=== PATIENT | female | born 1945 | race Caucasian/White ===

== ENCOUNTER → 2016-07-07 | Outpatient (CLI) | payer MEDICARE, OTHER ==
[2014-10-13 21:30] VITALS: BP 124/61
[~2016-07-07] MED LIST: ASPI81TA2 PO; ATOR20TA PO; CALC500T27 PO; CITA20TA9 PO; MULT-460 PO; VALS320T2 PO
--- NOTE | 2016-07-07 13:27 | RAD ---
Bone Densitometry History: Postmenopausal screening, white female, calcium use. Findings: Bone Densitometry was performed with dual photon absorption of the lumbar spine and proximal right femur. Lumbar Spine: Bone density is 1.269 g/cm2 for L1-L4. T-score is 0.7. There is levoconvex scoliosis centered at L3-4 level. Right Femur: Bone density is 0.965 g/cm2. T-score is -0.4. Impression: Bone mineral density of the lumbar spine and proximal right femur appears within normal limits. World Health Organization definition of osteoporosis and osteopenia for women: normal equals T score at or above -1.0 standard deviations; osteopenia equals T score between -1.0 and -2.5 standard deviations; osteoporosis equals T score at or below -2.5 standard deviations.
== END | disposition home or self-care (01) ==
LOC: DXRAD 12:42
PROVIDERS: ATTEND Family Medicine
DX: Z12.31 Encounter for screening mammogram for malignant neoplasm of breast (principal); M41.86 Other forms of scoliosis, lumbar region; Z78.0 Asymptomatic menopausal state
CPT/HCPCS: 77063; 77080; G0202; 77067

== ENCOUNTER → 2016-08-02 | Outpatient (CLI) | payer MEDICARE, OTHER ==
[2014-10-13 21:30] VITALS: BP 124/61
[~2016-08-02] MED LIST changes: +ASPI-630 PO; -ASPI81TA2 PO; -CALC500T27 PO; +CALC500T30 PO
--- NOTE | 2016-08-04 10:26 | RAD ---
DATE: 08/02/2016 EXAM: DIGITAL DIAGNOSTIC LT HISTORY: Possible abnormality seen on screening COMPARISON: Screening examination 07/07/2016 This study was interpreted with the benefit of Computerized Aided Detection (CAD ). FINDINGS: Breast Density: Unchanged relative to the screening exam. : Compression imaging in the CC plane was performed as well as rolled cc views of the left breast. On the additional images a definite mass is not seen and the findings on the screening examination are most compatible with summation artifact. Targeted ultrasound to the retroareolar area of the left breast was performed. In the retroareolar area no definite abnormality is seen. Additional imaging was performed targeted to the upper outer aspect of the left breast where a well -defined nodule was seen on mammography. At this location, 2:00, 7 cm from the nipple there is a hypoechoic 7 mm mass most compatible with a cyst. IMPRESSION: Probable benign findings left breast. Follow-up mammography of the left breast is suggested in 6 months to confirm stability BI-RADS CATEGORY: 3 PROBABLE BENIGN FINDING(S-SHORT INTERVAL FOLLOW-UP SUGGESTED RECOMMENDED FOLLOW-UP: 6M 6 MONTH FOLLOW-UP PQRS compliance statement: Patient information was entered into a reminder system with a target due date 02/02/2017 for the next mammogram. Mammography is a sensitive method for finding small breast cancers, but it does not detect them all and is not a substitute for careful clinical examination. A negative mammogram does not negate a clinically suspicious finding and should not result in delay in biopsying a clinically suspicious abnormality. "Our facility is accredited by the [employer] Mammography [employer]." SOL
== END | disposition home or self-care (01) ==
LOC: MAMMO 13:35
PROVIDERS: ATTEND Family Medicine
DX: R92.8 Other abnormal and inconclusive findings on diagnostic imaging of breast (principal)
CPT/HCPCS: 76641; G0206; 77065

== ENCOUNTER → 2017-02-14 | Outpatient (CLI) | payer MEDICARE, OTHER ==
[2014-10-13 21:30] VITALS: BP 124/61
--- NOTE | 2017-02-14 14:59 | RAD ---
DATE: 02/14/2017 EXAM: MAMMO ALISTAIR GISELLAG LT, BREAST LEFT HISTORY: 6 month follow-up COMPARISON: 07/07/2016 This study was interpreted with the benefit of Computerized Aided Detection (CAD). FINDINGS: Breast Density: HETERO The breast parenchyma Is heterogeneouslyy dense, which could reduce sensitivity of mammography. Breast parenchyma level C. Small masslike density identified in the left upper outer quadrant slightly increased since prior exam. Thyroid ultrasound the left breast at 2:00 position 7 cm from the nipple demonstrates a slightly increased 1 cm cystic structure probably a cyst. IMPRESSION: Probable cyst left breast. Recommend left breast ultrasound in 6 months. BI-RADS CATEGORY: 3 PROBABLE BENIGN-SHORT TERM F/U RECOMMENDED FOLLOW-UP: 6M 6 MONTH FOLLOW-UP PQRS compliance statement: Patient information was entered into a reminder system with a target due date 08/13/2017 for the next ultrasound. Mammography is a sensitive method for finding small breast cancers, but it does not detect them all and is not a substitute for careful clinical examination. A negative mammogram does not negate a clinically suspicious finding and should not result in delay in biopsying a clinically suspicious abnormality. "Our facility is accredited by the [employer] Mammography [employer]."
== END | disposition home or self-care (01) ==
LOC: MAMMO 13:13
PROVIDERS: ATTEND Family Medicine
DX: R92.8 Other abnormal and inconclusive findings on diagnostic imaging of breast (principal)
CPT/HCPCS: 76641; G0206; G0279; 77061; 77065

== ENCOUNTER → 2017-08-15 | Outpatient (CLI) | payer MEDICARE, OTHER ==
[2014-10-13 21:30] VITALS: BP 124/61
--- NOTE | 2017-08-15 14:40 | RAD ---
DATE: 08/15/2017 EXAM: MAMMO ALISTAIR OLIVA ESPINOSA, BREAST LEFT HISTORY: Follow-up left breast nodule COMPARISON: 02/14/2017, 08/02/2016 This study was interpreted with the benefit of Computerized Aided Detection (CAD). The breast parenchyma is heterogeneously dense, which could reduce sensitivity of mammography. Breast parenchyma level C. FINDINGS: 2-D and 3-D tomosynthesis imaging was performed in CC and MLO projections. There is a 9-10 mm nodule in the lateral aspect of the left breast which is unchanged since 07/07/2016. No new or enlarging breast densities are seen. No suspicious microcalcifications are evident. Left breast ultrasound, 08/15/2017: A targeted ultrasound exam of left breast was performed at 2:00 location, approximately 7 cm from the nipple where a small lesion was identified on the 02/14/2017 exam. There is an elongated, smooth, anechoic structure at this level measuring 6 x 5 x 9 mm. Allowing for technical differences it is unchanged since the previous study. It is wider than tall. There is mild posterior acoustic enhancement. The features are compatible with a simple cyst. No other abnormality is seen in this region. IMPRESSION: 1. Stable small cyst in the left breast. 2. No mammographic evidence of malignancy in either breast. BI-RADS CATEGORY: 1 NEGATIVE RECOMMENDED FOLLOW-UP: 12M 12 MONTH FOLLOW-UP PQRS compliance statement: Patient information was entered into a reminder system with a target due date for the next mammogram. Mammography is a sensitive method for finding small breast cancers, but it does not detect them all and is not a substitute for careful clinical examination. A negative mammogram does not negate a clinically suspicious finding and should not result in delay in biopsying a clinically suspicious abnormality. "Our facility is accredited by the [employer] Mammography [employer]."
== END | disposition home or self-care (01) ==
LOC: MAMMO 12:53
PROVIDERS: ATTEND Family Medicine
DX: R92.8 Other abnormal and inconclusive findings on diagnostic imaging of breast (principal)
CPT/HCPCS: 76641; 77066; G0279; 77062

== ENCOUNTER → 2018-01-06 | Outpatient (CLI) | payer MEDICARE, OTHER ==
[2014-10-13 21:30] VITALS: BP 124/61
--- NOTE | 2018-01-06 17:59 | RAD ---
Small bowel follow-through study 01/06/2018 CLINICAL HISTORY: Anemia of uncertain etiology. TECHNIQUE: A small bowel follow-through study was performed under radiographic control. No spot radiographs were obtained. FINDINGS: An AP digital radiograph of the abdomen was obtained as a extruder operator radiograph. This demonstrates a moderate sized hiatal hernia. There is mild cardiomegaly. The lung bases are clear. The abdominal bowel gas pattern is nonobstructive. Mild S-shaped curvature of the thoracolumbar spine is seen. Degenerative changes are seen involving the thoracic and lumbar spine. There is a moderate sized sliding hiatal hernia. The mucosal pattern of the duodenum, jejunum, ileum and terminal ileum is within normal limits. The small bowel transit time is within normal limits. No extrinsic mass effect upon the small bowel is seen. IMPRESSION: Moderate sized sliding hiatal hernia. Otherwise negative study. Electronically signed by: Giancarlo Hernandez MD (01/06/2018 5:56 PM) [id number]
== END | disposition home or self-care (01) ==
LOC: RAD 08:22
PROVIDERS: ATTEND Internal Medicine Gastroenterology
DX: K44.9 Diaphragmatic hernia without obstruction or gangrene (principal); I51.7 Cardiomegaly; D64.89 Other specified anemias
CPT/HCPCS: 74250

== ENCOUNTER → 2018-06-29 | Outpatient (CLI) | payer MEDICARE, OTHER ==
[2014-10-13 21:30] VITALS: BP 124/61
--- NOTE | 2018-06-29 15:46 | RAD ---
Bone densitometry 06/29/2018 12:33 PM Indication: post menopausal Comparison Study: Bone densitometry July 07, 2016. Discussion: Bone Densitometry was performed with dual photon absorption of the lumbar spine and right proximal femur.. Scoliotic and associated degenerative changes of the lumbar spine noted. Lumbar Spine: Bone average density is 1.175g/cm2 for L1-L4. T-Score is 0. (Prior T score 0.7) Right proximal femur: Bone average density is 0.907g/cm2. T-Score is -0.4. (Prior T score -0.4) IMPRESSION: Bone mineral density measurements are within normal limits. Note: Definitions established by the World Health Organization: Normal: T-score is -1.0 or above. Osteopenia: T-score is between -1.0 and -2.5. Osteoporosis: T-score is -2.5 or below. Electronically signed by: Hector Love MD (06/29/2018 3:43 PM) [id number]
== END | disposition home or self-care (01) ==
LOC: DXRAD 12:28
PROVIDERS: ATTEND Family Medicine
DX: Z13.820 Encounter for screening for osteoporosis (principal); M41.86 Other forms of scoliosis, lumbar region; M47.816 Spondylosis without myelopathy or radiculopathy, lumbar region; Z78.0 Asymptomatic menopausal state
CPT/HCPCS: 77080

== ENCOUNTER → 2018-10-02 | Outpatient (CLI) | payer MEDICARE, OTHER ==
[2014-10-13 21:30] VITALS: BP 124/61
--- NOTE | 2018-10-05 15:47 | RAD ---
EXAM: MAMMO ALISTAIR SCREENING BILATERAL HISTORY: routine screening evaluation. COMPARISON: Prior mammographic imaging dating back to 05/27/2015 Bilateral CC and MLO views of the breasts were performed. Bilateral breast tomosynthesis was performed in CC and MLO projections. This study was interpreted with the benefit of Computerized Aided Detection (CAD). Breast Density: The breast parenchyma is heterogeneously dense, which could reduce sensitivity of mammography. Breast parenchyma level C. FINDINGS: Benign calcifications are present. The parenchymal pattern appears stable. No suspicious masses, microcalcifications or architectural distortion is present to suggest malignancy in either breast. The visualized axillae are unremarkable. IMPRESSION: No mammographic evidence of malignancy. BI-RADS CATEGORY: 2 BENIGN FINDING(S) RECOMMENDED FOLLOW-UP: 12M 12 MONTH FOLLOW-UP Annual screening mammography is recommended, unless clinically indicated sooner based on symptoms or change in physical exam. PQRS compliance statement: Patient information was entered into a reminder system with a target due date for the next mammogram. Mammography is a sensitive method for finding small breast cancers, but it does not detect them all and is not a substitute for careful clinical examination. A negative mammogram does not negate a clinically suspicious finding and should not result in delay in biopsying a clinically suspicious abnormality. "Our facility is accredited by the [employer] Mammography [employer]." LUAND
== END | disposition home or self-care (01) ==
LOC: MAMMO 10:19
PROVIDERS: ATTEND Family Medicine
DX: Z12.31 Encounter for screening mammogram for malignant neoplasm of breast (principal); N64.89 Other specified disorders of breast
CPT/HCPCS: 77063; 77067

== ENCOUNTER → 2019-10-08 | Outpatient (CLI) | payer MEDICARE, OTHER ==
[2014-10-13 21:30] VITALS: BP 124/61
--- NOTE | 2019-10-08 16:43 | RAD ---
DATE: 10/08/2019 10:45 AM EXAM: MAMMO ALISTAIR SCREENING BILATERAL HISTORY: Screening COMPARISON: 10/02/2018, Bilateral CC and MLO views of the breasts were performed. Bilateral breast tomosynthesis was performed in CC and MLO projections. This study was interpreted with the benefit of Computerized Aided Detection (CAD). FINDINGS: Breast Density: HETERO The breast parenchyma Is heterogeneously dense, which could reduce sensitivity of mammography. Breast parenchyma level C Right breast shows an asymmetry in the medial middle third breast, best seen on the CC series both on the 2-D image and on image 34 of 64 on the CC series. It is not as well seen on the MLO view. This needs additional imaging with a full-field lateral view and spot compression view with probable targeted ultrasound of the right breast at the approximate 3:00 position lateral periareolar breast. No suspicious masses, microcalcifications or architectural distortion is present to suggest malignancy in the left breast. The visualized axillae are unremarkable. IMPRESSION: Right breast asymmetry, findings for which additional imaging is advised. BI-RADS CATEGORY: 0 INCOMPLETE: NEEDS ADDITIONAL IMAGING EVALUATION AND/OR PRIOR MAMMOGRAMS FOR COMPARISON. RECOMMENDED FOLLOW-UP: ADD ADDITIONAL IMAGING The patient will be contacted to return for additional imaging and a supplemental report will follow. PQRS compliance statement: Patient information was entered into a reminder system with a target due date for the next mammogram. Mammography is a sensitive method for finding small breast cancers, but it does not detect them all and is not a substitute for careful clinical examination. A negative mammogram does not negate a clinically suspicious finding and should not result in delay in biopsying a clinically suspicious abnormality. "Our facility is accredited by the [employer] Mammography [employer]."
== END ==
LOC: MAMMO 10:39
PROVIDERS: ATTEND Family Medicine
DX: Z12.31 Encounter for screening mammogram for malignant neoplasm of breast (principal)
CPT/HCPCS: 77063; 77067

== ENCOUNTER → 2019-10-22 | Outpatient (CLI) | payer MEDICARE, OTHER ==
[2014-10-13 21:30] VITALS: BP 124/61
--- NOTE | 2019-10-22 17:38 | RAD ---
DATE: 10/22/2019 3:09 PM EXAM: DIGITAL DIAGNOSTIC RT, BREAST RIGHT HISTORY: Screening recall for asymmetry in the medial right breast. COMPARISON: 05/27/2015, 10/08/2019 Technique: Spot compression cc views of the right breast in addition to full-field ML views of the right breast with 2-D and 3-D technique were obtained and reviewed with computer-aided detection. Targeted ultrasound of the superior right breast including the upper inner quadrant at the approximate 1:00 position was performed. Sonographic survey of the right axilla was also performed. FINDINGS: Breast Density: HETERO The breast parenchyma Is heterogeneously dense, which could reduce sensitivity of mammography. Breast parenchyma level C The questioned asymmetry changed configuration in a pattern compatible with benign overlap of dense fibroglandular tissue. Because the breast was heterogeneously dense, additional imaging by targeted ultrasound was pursued revealing no suspicious sonographic findings. IMPRESSION: No evidence of malignancy. BI-RADS CATEGORY: 1 NEGATIVE RECOMMENDED FOLLOW-UP: 12M 12 MONTH FOLLOW-UP Annual screening mammography is recommended, unless clinically indicated sooner based on symptoms or change in physical exam. PQRS compliance statement: Patient information was entered into a reminder system with a target due date for the next mammogram. Mammography is a sensitive method for finding small breast cancers, but it does not detect them all and is not a substitute for careful clinical examination. A negative mammogram does not negate a clinically suspicious finding and should not result in delay in biopsying a clinically suspicious abnormality. "Our facility is accredited by the [employer] Mammography [employer]."
== END | disposition home or self-care (01) ==
LOC: MAMMO 14:50
PROVIDERS: ATTEND Family Medicine
DX: R92.2 Inconclusive mammogram (principal)
CPT/HCPCS: 76641; 77065

== ENCOUNTER → 2020-10-27 | Outpatient (CLI) | payer MEDICARE, OTHER ==
[2014-10-13 21:30] VITALS: BP 124/61
--- NOTE | 2020-10-27 15:23 | RAD ---
INDICATION: 75 years of age asymptomatic female patient presents for screening mammography. TECHNIQUE: Full field craniocaudal and mediolateral oblique images of both breasts were obtained usi ng digital technique with tomosynthesis and also analyzed with computer-aided detection software. COMPARISON: Prior mammographic imaging 10/08/2019 10/02/2018. BREAST COMPOSITION: Category B: There are scattered fibroglandular densities. FINDINGS: Benign calcifications are present. The parenchymal pattern appears stable. No suspicious masses, microcalcifications or architectural distortion is present to suggest malignanc y in either breast. The visualized axillae are unremarkable. IMPRESSION: No mammographic evidence of malignancy. RECOMMENDATION: Annual screening mammography is recommended, unless clinically indicated sooner based on symptoms or change in physical exam. BIRADS 2: BENIGN This study was interpreted with the benefit of Computerized Aided Detection (CAD). Patient information is entered into the reminder system with a target due date for the next screening mammogram. Mammography is the most sensitive method for finding small breast cancers, but it does not detect the m all and is not a substitute for careful clinical examination. A negative mammogram does not negate a clinically suspicious finding and should not result in delay in biopsying a clinically suspicious a bnormality. "Our facility is accredited by the [employer] Mammography Program." Electronically signed by: Everardo Segura MD (10/27/2020 3:21 PM) [facility]
== END ==
LOC: MAMMO 09:14
PROVIDERS: ATTEND Family Medicine
DX: Z12.31 Encounter for screening mammogram for malignant neoplasm of breast (principal)
CPT/HCPCS: 77063; 77067

== ENCOUNTER → 2020-11-18 | Outpatient (CLI) | payer MEDICARE, OTHER ==
[2014-10-13 21:30] VITALS: BP 124/61
--- NOTE | 2020-11-18 10:38 | RAD ---
INDICATION: Screening for osteopenia/osteoporosis. Postmenopausal screening COMPARISON: 06/29/2018 TECHNIQUE: Bone densitometry was performed through the lumbar spine and proximal femur. IMPRESSION: Lumbar Spine: BMD: 1.16 T-Score: -0.2 Range: Normal. Similar to baseline from 2005. Scoliotic curvature of the spine Proximal Femur: BMD: 0.9 T-Score: -0.5 Range: Normal. Decreased by 6 percent from baseline and decreased by 1 percent from 2019 World Health Organization Criteria for Bone Density: T-Score: > -1.0: Normal Range < -1.0 to -2.5: Osteopenic Range < -2.5: Osteoporotic Range Electronically signed by: Lino Fuentes MD (11/18/2020 10:36 AM) [id number]
== END ==
LOC: DXRAD 09:55
PROVIDERS: ATTEND Family Medicine
DX: Z78.0 Asymptomatic menopausal state (principal); M43.9 Deforming dorsopathy, unspecified; M41.9 Scoliosis, unspecified
CPT/HCPCS: 77080